=== PATIENT | female | born 1985 | race Caucasian/White ===

== ENCOUNTER 2017-05-18 23:06 | Emergency (ER) | payer OTHER ==
[2017-05-19] MEDS ORDERED: Metoclopramide IV* 5 MG/ML 2 ML VIAL IV SLOW PU ONE (00:51)
[2017-05-19] MEDS ORDERED: NS 0.9% 1000 ML* 2,000 ML IV ONE (00:51)
[2017-05-19] MEDS ORDERED: Diphenoxylat/Atrop 2.5-0.025M* 1 TAB PO ONE (00:51)
[2017-05-19 01:27] LABS: ABS Basophils 0 10^3/ul (0-0.2); ABS Eosinophils 0.1 10^3/ul (0-0.6); ABS Lymphocytes 0.8 10^3/ul (1.0-4.8); ABS Monocytes 0.7 10^3/ul (0-0.8); ABS Neutrophils 6.7 10^3/ul (1.5-7.7); ABS Nucleated RBC 0 10^3/ul; Eosinophil % 0.8 % (0-6); Hematocrit 34 % (35-47); Hemoglobin 11.9 g/dl (12.0-16.0); Lymphocyte % 9.5 % (25-47); Mean Corpuscular HGB Conc 35 g/dl (31-36); Mean Corpuscular Hemoglobin 30 pg (27-31); Mean Corpuscular Volume 86 fL (80-97); Mean Platelet Volume 8.2 um3 (7.4-10.4); Nucleated Red Blood Cells % 0; Platelet Count 204 10^3/ul (150-450); Red Blood Count 4.01 10^6/ul (4.0-5.4); Red Cell Distribution Width 14 % (10.5-15); White Blood Count 8.3 10^3/ul (3.5-10.8)
[2017-05-19 01:46] LABS: EGFR Non-African American 152.6 (>60)
[2017-05-19] MEDS: Midazolam* 1 MG/ML 5 ML VIAL (5 MG) SLOW PUSH ONE ×2 (02:13)
--- NOTE | 2017-05-19 03:06 | ED ---
Kamari Ayers Nilda, scribed for Andrea Lee MD on 05/19/17 at 0204 . GI/ HPI - HPI Summary HPI Summary: This patient is a 31 year old F presenting to [facility] accompanied by family with a chief complaint of constant moderate abd pain with V/D since yesterday. Pt states last diarrheal BM was in ED. The patient rates the pain 6/10 in severity. Symptoms aggravated and alleviated by nothing. Patient denies fever. - History of Current Complaint Chief Complaint: EDAbdPain Time Seen by Provider: 05/19/17 00:08 Stated Complaint: 22 WKS PREG/VOMITING Hx Obtained From: Patient Onset/Duration: Started Days Ago, Still Present Timing: Constant Current Severity: Moderate Pain Intensity: 6 Location of Pain: Diffuse Associated Signs and Symptoms: Positive: Nausea, Vomiting. Negative: Fever Aggravating Factor(s): Nothing Alleviating Factor(s): Nothing - Allergy/Home Medications Allergies/Adverse Reactions: Allergies Allergy/AdvReac Type Severity Reaction Status Date / Time No Known Allergies Allergy Verified 05/18/17 23:11 PMH/Surg Hx/FS Hx/Imm Hx Sensory History: Reports: Hx Contacts or Glasses EENT History: Denies: Hx Deafness Infectious Disease History: No Infectious Disease History: Denies: Traveled Outside the [place] in Last 30 Days - Family History Known Family History: Positive: Hypertension - Social History Alcohol Use: None Substance Use Type: Reports: None Smoking Status (MU): Never Smoked Tobacco Review of Systems Negative: Fever Positive: Abdominal Pain, Vomiting, Diarrhea All Other Systems Reviewed And Are Negative: Yes Physical Exam - Summary Physical Exam Summary: VITAL SIGNS: Reviewed. GENERAL: Patient is a well-developed and nourished female who is lying comfortable in the stretcher. Patient is not in any acute respiratory distress. HEAD AND FACE: No signs of trauma. No ecchymosis, hematomas or skull depressions. No sinus tenderness. EYES: PERRLA, EOMI x 2, No injected conjunctiva, no nystagmus. EARS: Hearing grossly intact. Ear canals and tympanic membranes are within normal limits. MOUTH: Oropharynx within normal limits. NECK: Supple, trachea is midline, no adenopathy, no JVD, no carotid bruit, no c- spine tenderness, neck with full ROM. CHEST: Symmetric, no tenderness at palpation LUNGS: Clear to auscultation bilaterally. No wheezing or crackles. CVS: Regular rate and rhythm, S1 and S2 present, no murmurs or gallops appreciated. ABDOMEN: Soft, non-tender. No signs of distention. No rebound no guarding, and no masses palpated. Bowel sounds are hyperactive. EXTREMITIES: FROM in all major joints, no edema, no cyanosis or clubbing. NEURO: Alert and oriented x 3. No acute neurological deficits. Speech is normal and follows commands. SKIN: Dry and warm Triage Information Reviewed: Yes Vital Signs On Initial Exam: Initial Vitals Temp Pulse Resp BP Pulse Ox 97.6 F 105 16 101/75 96 05/18/17 23:08 05/18/17 23:08 05/18/17 23:08 05/18/17 23:08 05/18/17 23:08 Vital Signs Reviewed: Yes Diagnostics - Vital Signs Vital Signs Temp Pulse Resp BP Pulse Ox 05/19/17 00:30 103 138/77 98 05/19/17 00:18 100 139/73 98 05/18/17 23:08 97.6 F 105 16 101/75 96 - Laboratory Lab Results: Lab Results 05/19/17 05/19/17 Range/Units 01:10 01:10 WBC 8.3 (3.5-10.8) 10^3/ul RBC 4.01 (4.0-5.4) 10^6/ul Hgb 11.9 L (12.0-16.0) g/dl Hct 34 L (35-47) % MCV 86 (80-97) fL MCH 30 (27-31) pg MCHC 35 (31-36) g/dl RDW 14 (10.5-15) % Plt Count 204 (150-450) 10^3/ul MPV 8.2 (7.4-10.4) um3 Neut % (Auto) 80.7 (38-83) % Lymph % (Auto) 9.5 L (25-47) % [place] % (Auto) 8.5 H (0-7) % Eos % (Auto) 0.8 (0-6) % Baso % (Auto) 0.5 (0-2) % Absolute Neuts (auto) 6.7 (1.5-7.7) 10^3/ul Absolute Lymphs (auto) 0.8 L (1.0-4.8) 10^3/ul Absolute Monos (auto) 0.7 (0-0.8) 10^3/ul Absolute Eos (auto) 0.1 (0-0.6) 10^3/ul Absolute Basos (auto) 0 (0-0.2) 10^3/ul Absolute Nucleated RBC 0 10^3/ul Nucleated RBC % 0 Sodium 132 L (139-145) mmol/L Potassium 3.6 (3.5-5.0) mmol/L Chloride 99 L (101-111) mmol/L Carbon Dioxide 25 (22-32) mmol/L Anion Gap 8 (2-11) mmol/L BUN 9 (6-24) mg/dL Creatinine 0.47 L (0.51-0.95) mg/dL Est GFR ( Amer) 196.3 (>60) Est GFR (Non-Af Amer) 152.6 (>60) BUN/Creatinine Ratio 19.1 (8-20) Glucose 109 H (70-100) mg/dL Calcium 8.8 (8.6-10.3) mg/dL Magnesium 1.8 L (1.9-2.7) mg/dL Total Bilirubin 0.40 (0.2-1.0) mg/dL AST 9 L (13-39) U/L ALT 8 (7-52) U/L Alkaline Phosphatase 50 (34-104) U/L C-Reactive Protein 43.60 H (< 5.00) mg/L Total Protein 6.6 (6.4-8.9) g/dL Albumin 3.2 (3.2-5.2) g/dL Globulin 3.4 (2-4) g/dL Albumin/Globulin Ratio 0.9 L (1-3) Amylase 12 L (29-103) U/L Lipase < 10 L (11.0-82.0) U/L Result Diagrams: 05/19/17 01:10 05/19/17 01:10 Lab Statement: Any lab studies that have been ordered have been reviewed, and results considered in the medical decision making process. Re-Evaluation - Re-Evaluation First Eval Re-Evaluation Time: 02:30 Comment: Pt feeling better with IV fluids. Reviewed lab with pt. Pt agreeable to D/C. GIGU Course/Dx - Course Assessment/Plan: 31 y/o with N/V/D for 1-2 days. Hyperactive bowel sounds on exam. Pt will be D/C with Dx Gastroenteritis. - Diagnoses Provider Diagnoses: Gastroenteritis Discharge - Sign-Out/Discharge Documenting (check all that apply): Discharge - home - Discharge Plan Condition: Stable Disposition: HOME Prescriptions: Metoclopramide TAB* [Reglan TAB*] 10 mg PO Q6H PRN #20 tab PRN Reason: Nausea/Vomiting Patient Education Materials: Gastroenteritis (ED) Referrals: Alaina Mayers CNM [Primary Care Provider] - 2 Days Additional Instructions: RETURN TO THE EMERGENCY DEPARTMENT FOR CHANGING OR WORSENING SYMPTOMS. The documentation as recorded by the Kamari dale Nilda accurately reflects the service I personally performed and the decisions made by Jesus mcgee Abdul, MD.
[2017-05-19 04:07] VITALS: BP 136/76
== END 2017-05-19 04:06 | disposition home or self-care (01) ==
LOC: ED 23:06
DX: K52.9 Noninfective gastroenteritis and colitis, unspecified (principal); R11.2 Nausea with vomiting, unspecified; R19.7 Diarrhea, unspecified
CPT/HCPCS: 36415; 80053; 82150; 83690; 83735; 85025; 86140; 96374; 99283; A9270-GY; J2765

== ENCOUNTER 2017-09-19 16:34 | Inpatient (IN) | payer OTHER ==
[2017-09-19] MEDS ORDERED: Dinoprostone* 10 MG VAG.SUPP VAGINAL ONE (17:00)
--- NOTE | 2017-09-19 19:35 | PN ---
L&D Outpatient: Visit - Reproductive Information Estimated Due Date: 09/22/17 Gestational Age: 39 Weeks and 4 Days : 1 Para: 0 - Reason for Visit Visit Reason: cervical ripening - Antepartal Records Antepartal Record: Reviewed, Complicated by: - mild preeclampsia - Patient History Patient History Significant: Yes Patient History Significant For: BMI 41 Review of Systems Constitutional: Comfortable CV Complaint: No Respiratory: Shortness of Breath: No Gastrointestinal: No Nausea/Vomiting, Normal Bowel Movement Genitourinary: No Dysuria, No Bleeding, No Leaking Fluid Musculoskeletal: No Complaint, No Epigastric Pain Neurological: No Headache, No Visual Changes Movement: Normal L&D Outpatient: Exam - Cervical Exam Cervical Exam: /2 - Abdominal Exam Abdomen Exam: Fundal Height Consistent with Dates - Membranes Membrane Status: Intact - Ultrasound/Biophysical Profile Ultrasound Status: Not Done EFM Findings - External Monitor Findings Baseline Heart Rate: 140 External Monitor Findings: Accelerations Present, No Pattern of Variable or Late Decelerations, Variability Moderate, Baseline Stable Contractions: None L&D Outpatient: Asses/Plan Assessment: 31 y.o. mild preeclampsia for cervical ripening Plan: Other - cervical ripening
[2017-09-19] MEDS ORDERED: Promethazine INJ(RESTRICTED)* 25 MG/ML 1 ML VIAL IV ONE (19:45)
[2017-09-19] MEDS ORDERED: Nalbuphine* 10 MG/ML 1 ML VIAL IV ONE (19:45)
[2017-09-19] MEDS ORDERED: Promethazine INJ(RESTRICTED)* 25 MG/ML 1 ML VIAL IM ONE (23:00)
[2017-09-19] MEDS ORDERED: Nalbuphine* 10 MG/ML 1 ML VIAL IM ONE (23:00)
[2017-09-20] MEDS ORDERED: Misoprostol TAB* 100 MCG PO ONE ×2 (09:58→14:35)
--- NOTE | 2017-09-20 10:05 | PN ---
Progress Note - Progress Note Date of Service: 09/20/17 SOAP: Subjective: [Pt reports period like cramping overnight and continuing, denies contractions, denies LOF, or VB, but reports +FM. Reviewed options for induction of labor and risks versus benefits and pt agrees with plan. Pt denies MUSA, epigastric pain, vision changes, facial edema.] Objective: [BP: 146/77, P:84, T:97.8, R:18 cervix: 1-2cm/60%/-1 NST: baseline 130bpm, +accels, -decels, mod. variability. rare contractions] Assessment: [31 y.o. at 39w 5d, mild PEC, IOL] Plan: [1) Misoprostol for cervical ripening 2) Reviewed options and risks versus benefits 3) Reevaluate PRN]
[2017-09-20] MEDS: Calcium Carbonate CHEW TAB* 500 MG (TUMS) PO PRN ×3 (13:14→22:43)
[2017-09-20] MEDS ORDERED: Nalbuphine* 10 MG/ML 1 ML VIAL IM PRN (20:44)
--- NOTE | 2017-09-20 20:44 | PN ---
Progress Note - Progress Note Date of Service: 09/20/17 SOAP: Subjective: [Pt reports irregular mild contractions, -LOF, -VB, +FM. Pt denies MUSA, vision changes or epigastric pain.] Objective: [BP:122/86, P:103, T:97.9, R:18/min NST: 140bpm, +accels, -decels, mod variability, ctx q 2-3 min mild to palpation cervix 2-3/70/-1] Assessment: [31 y.o. , mild preeclampsia] Plan: [1) Discussed options for IOL with pts and pt elects to continue with restrepo catheter for further cervical ripening. Reviewed risks versus benefits 2) Restrepo placed with 30cc saline 3) Therapeutic rest ordered 4) Reevaluate PRN]
[2017-09-20] MEDS ORDERED: Promethazine INJ(RESTRICTED)* 25 MG/ML 1 ML VIAL IM PRN (20:45)
[2017-09-21] MEDS: Calcium Carbonate CHEW TAB* 500 MG (TUMS) PO PRN ×2 (09:39→15:01)
--- NOTE | 2017-09-21 14:41 | PN ---
Progress Note - Progress Note Date of Service: 09/21/17 - 9AM SOAP: Subjective: [Pt reports she slept fairly well, irregular mild ctx, +FM.] Objective: [T:97.4, R:18, BP:154/88, P:103 Cervix: 4/80/-1 AROM bloody NST: 135bpm, +accels, -decels, mod variability. Ctx q 4-8 min mild to palpation.] Assessment: [31 yo , mild PEC, induction of labor] Plan: [1) AROM 2) Ambulation and position changes 3) Reviewed options for continuing induction and pt prefers to continue with AROM and agrees to pitocin augmentation if active labor doesn't start 4) Questions answered to pt satisfaction]
--- NOTE | 2017-09-21 14:55 | PN ---
Progress Note - Progress Note Date of Service: 09/20/17 - 22:30 Note: Pt uncomfortable with ctx. FHT: 135, +accels, -decel, moderate variability, ctx q 2-3 mild-mod. Therapeutic rest PRN
[2017-09-21] MEDS ORDERED: Lidocaine 1%* 5 ML VIAL ONE (14:57)
[2017-09-21] MEDS ORDERED: Oxytocin in LR* 20 UNITS/1,000 ML BAG IVPB SCH (15:00)
[2017-09-21 15:18] LABS: ABS Basophils 0 10^3/ul (0-0.2); ABS Eosinophils 0.1 10^3/ul (0-0.6); ABS Monocytes 0.8 10^3/ul (0-0.8); ABS Neutrophils 9.4 10^3/ul (1.5-7.7); ABS Nucleated RBC 0 10^3/ul; Eosinophil % 0.6 % (0-6); Hematocrit 34 % (35-47); Hemoglobin 11.2 g/dl (12.0-16.0); Lymphocyte % 8.5 % (25-47); Mean Corpuscular HGB Conc 33 g/dl (31-36); Mean Corpuscular Hemoglobin 28 pg (27-31); Mean Corpuscular Volume 83 fL (80-97); Mean Platelet Volume 9.2 um3 (7.4-10.4); Nucleated Red Blood Cells % 0.1; Platelet Count 245 10^3/ul (150-450); Red Blood Count 4.05 10^6/ul (4.00-5.40); Red Cell Distribution Width 15 % (10.5-15); White Blood Count 11.3 10^3/ul (3.5-10.8)
--- NOTE | 2017-09-21 15:32 | PN ---
Progress Note - Progress Note Date of Service: 09/21/17 SOAP: Subjective: [Pt reports irregular moderate ctx. clear fluid. +FM] Objective: [T:98.4, R:18, O2:98, BP:143/100, P:97 cervix: 4/80/-1 FHT: 135 baseline, moderate variability, +accels, -decels, ctx q 4-8 mild] Assessment: [31 yo PEC, IOL] Plan: [1) Reviewed options and pt wishes to go for a walk, take a shower and then begin initiation of pitocin augmentation if there is no change, 2) Reviewed R/B 3) Questions answered to pt satisfaction 4) Orders placed]
[2017-09-21] MEDS ORDERED: OBEPIDURAL* 250 ML EPIDURAL ONE (17:30)
--- NOTE | 2017-09-21 17:33 | PN ---
Progress Note - Progress Note Date of Service: 09/21/17 SOAP: Subjective: [Pt reports ctx are more painful and requests epidural. ] Objective: [cervix: /-1 FHT: 140 bpm, +accels, -decels, mod variability ctx q 2-3min.] Assessment: [31 y.o. PEC 39 weeks 6 days. IOL] Plan: [1) Reviewed pain mgmt options pt elects to continue with Epidural, anesthesia called 2) Pitocin stopped ]
[2017-09-21] MEDS ORDERED: EPHEDrine (Pressors)* 50 MG/ML VIAL IV PUSH PRN (18:01)
[2017-09-21] MEDS ORDERED: Famotidine TAB* 20 MG PO PRN (18:01)
[2017-09-21] MEDS ORDERED: Phenylephrine IV* 40 MCG/ML 10 ML SYRINGE IV PUSH PRN (18:01)
[2017-09-21] MEDS ORDERED: Sodium Citrate/Citric Acid* 15 ML UDC PO PRN (18:01)
[2017-09-21] MEDS ORDERED: OBEPIDURAL* 250 ML EPIDURAL SCH (19:00)
--- NOTE | 2017-09-21 19:08 | HP ---
General Information - Reason for Visit Induction of labor for mild preeclampsia at 39 weeks and 4days EGA - General Information Maternal Age: 31 Grav: 1 Para: 0 SAB: 0 IEA: 0 Estimated Due Date: 09/22/17 Determined By: LMP Maternal Blood Type and Rh: A Positive - Results this Serology/RPR Result: Non-Reactive Rubella Result: Non-Immune HBsAg Result: Negative HIV Result: Negative GBS Culture Result: Negative Past Medical History Delivery History: See Records Pertinent Past Medical History: See Records - gastroparesis, hx depression Pertinent Past Surgical History: None Pertinent Family History: See Records - DM, CVD, HTN, colon CA, gastroparesis - Antepartal Records Antepartal Records: Reviewed, Complicated by: - preeclampsia, BMI 41 Review of Systems CV Complaint: No Respiratory: Shortness of Breath: No Gastrointestinal: No Nausea/Vomiting, Normal Bowel Movement Genitourinary: No Dysuria, No Bleeding, No Leaking Fluid Musculoskeletal: No Complaint, No Epigastric Pain Neurological: No Headache, No Visual Changes Movement: Normal Exam Allergies/Adverse Reactions: Allergies No Known Allergies Allergy (Verified 05/18/17 23:11) T:96.1, R:18, O2: 100 Lab Values - Entire Visit: Laboratory Tests 09/21/17 09/21/17 14:50 14:50 WBC 11.3 H RBC 4.05 Hgb 11.2 L Hct 34 L MCV 83 MCH 28 MCHC 33 RDW 15 Plt Count 245 MPV 9.2 Neut % (Auto) 83.1 H Lymph % (Auto) 8.5 L [place] % (Auto) 7.5 H Eos % (Auto) 0.6 Baso % (Auto) 0.3 Absolute Neuts (auto) 9.4 H Absolute Lymphs (auto) 1.0 Absolute Monos (auto) 0.8 Absolute Eos (auto) 0.1 Absolute Basos (auto) 0 Absolute Nucleated RBC 0 Nucleated RBC % 0.1 Blood Type A Positive Antibody Screen Negative - Measurements Height: 5 ft 4 in Weight: 280 lb Weight in lbs: [phone] Body Mass Index (BMI): 48.0 Pre- Weight: 230 lb Weight Gained This : 50 lbs and 0 ozs - Exam Breast: Breast Exam Deferred CVA: No CVA Tenderness Extremities: No Edema Heart: Normal Rhythm/Heart Sounds HEENT: No Significant Findings Lungs: Clear Bilaterally Rectal: Rectal Exam Deferred Reflexes: DTR 2+ Thyroid: No Thyromegaly - Abdominal Exam Abdomen Exam: Fundal Height Consistent with Dates - Ultrasound/Biophysical Profile Ultrasound Status: Not Done Targeted Exam Findings Estimated Weight: 9lbs Cervical Exam: 1cm, 4cm Effacement: 60%, 90% Station: -1 Presenting Part: Vertex Membrane Status: Intact Bleeding/Discharge: None EFM Findings - External Monitor Findings Baseline Heart Rate: 140 External Monitor Findings: Accelerations Present, No Pattern of Variable or Late Decelerations, Variability Moderate, Baseline Stable Contractions: None Assessment/Plan - Assessment 31 y.o. , mild preeclampsia, induction of labor at 39w4d - Obstetrical Risk Factors Obstetrical Risk Factors: PreEclampsia - Plan Plan: Induction - Date/Time of Admission Date of Admission: 09/21/17 Time of Admission: 15:00
--- NOTE | 2017-09-21 21:19 | PN ---
Progress Note - Progress Note Date of Service: 09/21/17 Note: S: Pt reports vaginal pressure with contractions, denies pain. +bloody show, pt states she has been changing positions and is comfortable. O: cervix: 8/100/+1 bloody show, FHT: baseline 145bpm, mod variability, +accels , -decels, ctx q 1-2min pitocin at 1 mu. A: 31 y.o. mild preeclampsia, Induction of labor P: 1) Anticipate vaginal delivery 2) labor down until urge to push
[2017-09-22] MEDS ORDERED: Glycerin ADULT SUPP PR PRN (00:40)
[2017-09-22] MEDS ORDERED: Witch Hazel PAD* JAR TOPICAL PRN (00:40)
[2017-09-22] MEDS ORDERED: Dibucaine 1% 28.35 GM TUBE PR PRN (00:40)
--- NOTE | 2017-09-22 00:40 | PROCNOTE ---
[facility] OB: Delivery Note - Delivery A Date of : 09/21/17 Time of : 23:56 Sex: Male Gestational Age in Weeks and Days at Delivery: 39 Weeks and 6 Days Delivery Method: Spontaneous Vaginal Labor: Induced Did Patient attempt ?: N/A, No Previous Amniotic Fluid: Clear Estimated Blood Loss: 250 Anesthesia/Analgesia: CEI for Labor Delivered By: Laura Elizabeth - Nursery Level of Nursery: Regular/Bedside - Perineum Perineal Injury: 2nd Degree Perineal Repair: By Delivering Practioner - Events Delivery Events of Note: Pitocin During Labor
[2017-09-22] MEDS ORDERED: Oxytocin in LR* 20 UNITS/1,000 ML BAG IVPB SCH (01:00)
[2017-09-22] MEDS: Ibuprofen TAB* 600 MG PO PRN ×3 (02:26→15:13)
[2017-09-22] MEDS ORDERED: Lidocaine 1%* 5 ML VIAL ONE (03:01)
[2017-09-22] MEDS: Calcium Carbonate CHEW TAB* 500 MG (TUMS) PO PRN ×3 (03:45→21:51)
[2017-09-22] MEDS ORDERED: Simethicone TAB* 80 MG TAB.CHEW PO SCH (08:30)
[2017-09-22] MEDS: Docusate CAP* 100 MG PO SCH ×3 (09:17→19:58)
[2017-09-22] MEDS: Acetaminophen TAB* 325 MG PO PRN ×3 (09:28→19:58)
[2017-09-23] MEDS: Acetaminophen TAB* 325 MG PO PRN ×3 (00:49→09:55)
[2017-09-23 07:03] LABS: ABS Basophils 0 10^3/ul (0-0.2); ABS Eosinophils 0.2 10^3/ul (0-0.6); ABS Lymphocytes 1.2 10^3/ul (1.0-4.8); ABS Monocytes 0.8 10^3/ul (0-0.8); ABS Neutrophils 6.9 10^3/ul (1.5-7.7); ABS Nucleated RBC 0 10^3/ul; Eosinophil % 1.7 % (0-6); Hematocrit 27 % (35-47); Hemoglobin 9.1 g/dl (12.0-16.0); Lymphocyte % 13.4 % (25-47); Mean Corpuscular HGB Conc 34 g/dl (31-36); Mean Corpuscular Hemoglobin 28 pg (27-31); Mean Corpuscular Volume 84 fL (80-97); Mean Platelet Volume 8.5 um3 (7.4-10.4); Nucleated Red Blood Cells % 0; Platelet Count 168 10^3/ul (150-450); Red Blood Count 3.24 10^6/ul (4.00-5.40); Red Cell Distribution Width 16 % (10.5-15); White Blood Count 9.1 10^3/ul (3.5-10.8)
[2017-09-23 07:19] LABS: EGFR Non-African American 173.8 (>60)
[2017-09-23 07:47] VITALS: BP 145/67
[2017-09-23] MEDS ORDERED: Ferrous Gluconate TAB* 324 MG TAB PO SCH (09:00)
[2017-09-23] MEDS: Docusate CAP* 100 MG PO SCH (09:55)
[2017-09-23] MEDS: Calcium Carbonate CHEW TAB* 500 MG (TUMS) PO PRN (10:55)
== END 2017-09-23 11:00 | disposition home or self-care (01) | DRG 774 ==
LOC: MCHOBOUT 16:34 → MCHOB 09-21 14:48
PROVIDERS: ADMIT Midwife; ATTEND Midwife
PROC: 10E0XZZ Delivery of Products of Conception, External Approach (ICD-10-PCS; principal; 2017-09-21)
PROC: 0KQM0ZZ Repair Perineum Muscle, Open Approach (ICD-10-PCS; 2017-09-21)
PROC: 3E033VJ Introduction of Other Hormone into Peripheral Vein, Percutaneous Approach (ICD-10-PCS; 2017-09-21)
PROC: 10907ZC Drainage of Amniotic Fluid, Therapeutic from Products of Conception, Via Natural or Artificial Opening (ICD-10-PCS; 2017-09-21)
DX: O14.93 Unspecified pre-eclampsia, third trimester (principal); Z68.41 Body mass index [BMI] 40.0-44.9, adult; O14.04 Mild to moderate pre-eclampsia, complicating childbirth; O99.214 Obesity complicating childbirth; E66.9 Obesity, unspecified; O70.1 Second degree perineal laceration during delivery; Z3A.39 39 weeks gestation of pregnancy; Z37.0 Single live birth
CPT/HCPCS: 36415; 59200; 80053; 85025; 86850; 86900; 86901; A9270-GY; J2300; J2550; S0191